=== PATIENT | male | born 1945 | race Caucasian/White ===

== ENCOUNTER → 2017-05-08 | Outpatient (CLI) | payer MEDICARE, MEDICAID ==
[~2017-05-08] MED LIST: ALBU8.5H IH; AMOX-559 PO; CEPH-13 PO; CLO75 PO; CLOP75TA14 FT; CLOP75TA43 PO; CYCL10TA29 PO; ENOX150D3 SQ; EZET10TA41 PO; HYDR-385 PO; HYDR-4225 PO; HYDR12.561 PO; IBU800 PO; LISI-362 PO; LOR5/325 PO; MECL-111 PO; MECL-205 PO; NAP500 PO; NO MEDS; NO RTN MEDS; OXYC-865 PO; OXYC10TA67 PO; PRA20 PO; PRAV40TA78 PO; PRAV80TA29 PO; WAR5 PO; WAR75 PO; WARF-18 PO
--- NOTE | 2017-05-08 12:01 | RADIOLOGY IMAGING REPORT ---
FACILITY: [facility] PATIENT NAME: Jace Farr : 1945 MR: [id number] V: [id number] EXAM DATE: ORDERING PHYSICIAN: LAUREN CASTLE TECHNOLOGIST: Location: [facility] [place] Patient: Jace Farr : 1945 Visit/Account:[id number] Date of Sevice: 05/08/2017 Examination: MRI right shoulder without contrast. Patient was unwilling to enter the magnet for imaging related to claustrophobia. No images were obtai estevan. Report Dictated By: Bryson Andino at 05/08/2017 11:53 AM Report E-Signed By: Bryson Andino at 05/08/2017 11:57 AM WSN:[id number]
== END ==
LOC: MRI 02:15
PROVIDERS: ATTEND Family Medicine
DX: Z02.9 Encounter for administrative examinations, unspecified (principal)

== ENCOUNTER 2017-05-20 02:52 | Day surgery (SDC) | payer MEDICARE, MEDICAID ==
[~2017-05-20] VITALS: Ht 175.3 cm; Wt 114.8 kg
[~2017-05-20 02:52] MED LIST changes: -WARF-18 PO; +WARF5TAB23 PO
[2017-05-20] MEDS: NORMOSOL R SOLN(*) 1000 ML BAG 1,000 ML IV PRN ×2 (10:39→13:02)
[2017-05-20] MEDS ORDERED: LIDOCAINE/SOD BICARB 8.4% SYR ID ONE (11:00)
[2017-05-20] MEDS ORDERED: MIDAZOLAM 2 MG/2 ML VIAL IVP PRN (11:00)
[2017-05-20 11:19] VITALS: BP 126/77
--- NOTE | 2017-05-20 11:30 | EKG ---
FACILITY: [facility] PATIENT NAME: LOLLY TREVIÑO : [id number] MR: [id number] V: [id number] EXAM DATE: ORDERING PHYSICIAN: LAUREN CASTLE TECHNOLOGIST: GLADYS Test Reason : PREOP-MRI Blood Pressure : / mmHG Vent. Rate : 061 BPM Atrial Rate : 061 BPM P-R Int : 156 ms QRS Dur : 088 ms QT Int : 446 ms P-R-T Axes : 057 040 054 degrees QTc Int : 448 ms Normal sinus rhythm Normal ECG When compared with ECG of 15-FEB-2017 10:16, No significant change was found Confirmed by WALKER VELASQUEZ ([id number]) on 05/20/2017 3:13:19 PM Referred By: CORRINE Confirmed By:WALKER VELASQUEZ
[2017-05-20] MEDS ORDERED: PROPOFOL EMUL(*) 10MG/ML 20 ML 0 ML ONE (11:40)
[2017-05-20] MEDS ORDERED: MIDAZOLAM 2 MG/2 ML VIAL ONE (11:40)
[2017-05-20] MEDS ORDERED: SUCCINYLCHOL CHL 200MG/10ML VL ONE (11:40)
[2017-05-20] MEDS ORDERED: FLUMAZENIL 0.1 MG/ML 5 ML VIAL ONE (11:40)
[2017-05-20] MEDS ORDERED: GLYCOPYRROLATE 0.2 MG/ML SDV ONE (11:41)
[2017-05-20] MEDS ORDERED: PHENYLEPHRINE/NS/PF 0.4MG/10ML ONE (11:41)
[2017-05-20 12:41] VITALS: BP 121/75
[2017-05-20 12:55] VITALS: BP 123/81
[2017-05-20 13:20] VITALS: BP 115/76
[2017-05-20 13:51] VITALS: BP 120/72
[2017-05-20 14:13] VITALS: BP 119/69
--- NOTE | 2017-05-20 18:19 | RADIOLOGY IMAGING REPORT ---
FACILITY: [facility] PATIENT NAME: Jace Farr : 1945 MR: [id number] V: [id number] EXAM DATE: ORDERING PHYSICIAN: LAUREN CASTLE TECHNOLOGIST: Location: [facility] [place] Patient: Jace Farr : 1945 Visit/Account:[id number] Date of Sevice: 05/20/2017 MRI right shoulder Indication: Chronic shoulder pain. Comparison: None available. Technique: Multiplanar multisequence MR images were obtained through the right shoulder. Findings: Rotator cuff: There is focal moderate to high-grade undersurface tearing of distal anterior supraspinatus. No defin ite full-thickness tear. The infraspinatus is intact with moderate tendinopathy noted. Subscapularis and teres minor also intact. Biceps tendon: Mild tendinopathy intra-articular portion biceps tendon. AC joint and acromion: There are moderate to severe AC joint degenerative changes with undersurface spurring causing mild ma ss effect upon the supraspinatus. Acromion has an unremarkable appearance. Labrum and capsular ligaments: Nondisplaced degenerative tearing of the superior labrum seen with degenerative tearing of the salvage cutter ior inferior and anterior-inferior labrum as well. Capsular ligaments are intact with no evidence of focal abnormality. Bones and cartilage: No evidence of abnormal marrow edema or focal bony lesions. No evidence of any bony erosions or jeffery ostitis. No focal chondral defect glenohumeral joint cartilage.. Effusion, bursitis: No significant glenohumeral joint effusion. Mild amount of fluid seen within the subacromial/subdeltoid bursa. IMPRESSION: 1. Mild subacromial/subacute bursitis. 2. 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 3. Extensive near circumferential degenerative labral tearing. 4. Focal moderate to high-grade undersurface tearing distal anterior supraspinatus. Report Dictated By: Willy Crooks MD at 05/20/2017 6:11 PM Report E-Signed By: Willy Crooks MD at 05/20/2017 6:14 PM WSN:[email or web address]
== END 2017-05-20 14:32 | disposition home or self-care (01) ==
LOC: OR 02:52
PROVIDERS: ATTEND Family Medicine
DX: M19.011 Primary osteoarthritis, right shoulder (principal); M75.51 Bursitis of right shoulder; S43.401A Unspecified sprain of right shoulder joint, initial encounter; M75.101 Unspecified rotator cuff tear or rupture of right shoulder, not specified as traumatic; I10 Essential (primary) hypertension
CPT/HCPCS: 73221; 93005; 99152; 99153; J2250; J0330; J2370; J2704; J3490

== ENCOUNTER → 2017-05-28 | Outpatient (CLI) | payer MEDICARE, MEDICAID ==
--- NOTE | 2017-05-28 11:51 | RADIOLOGY IMAGING REPORT ---
FACILITY: [facility] PATIENT NAME: Jace Farr : 1945 MR: [id number] V: [id number] EXAM DATE: ORDERING PHYSICIAN: CARLOS REARDON TECHNOLOGIST: Location: [facility] Patient: Jace Farr : 1945 Visit/Account:[id number] Date of Sevice: 05/28/2017 EXAMINATION: Aorta ultrasound with duplex Doppler evaluation HISTORY: Follow-up AAA size COMPARISON: CT abdomen pelvis November 04, 2016 FINDINGS: Suprarenal abdominal aorta: 2.9 x 3.4 cm AP and transverse dimensions Superior infrarenal abdominal aorta: 3.4 x 3.6 cm AP and transverse dimensions Mid infrarenal abdominal aorta: 4.2 x 4.8 cm AP and transverse dimensions Inferior infrarenal abdominal aorta: 3.3 x not well seen due to overlying bowel gas cm AP and transve rse dimensions Proximal common iliac artery diameter: Left 22 mm; right 24 mm Aorta wall: Negative. Aorta and proximal common iliac artery are patent by duplex Doppler ultrasound. IMPRESSION: Infrarenal abdominal aortic aneurysm now measures 4.2 x 4.8 cm previously measuring 4.3 x 4.5 cm. 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
== END ==
LOC: RAD 00:45
PROVIDERS: ATTEND Internal Medicine Cardiovascular Disease
DX: I71.4 Abdominal aortic aneurysm, without rupture (principal)
CPT/HCPCS: 93978

== ENCOUNTER → 2017-07-13 | Outpatient (CLI) | payer MEDICARE, MEDICAID ==
[~2017-07-13] MED LIST changes: +IPRN ENA; +OXYC-373 PO
[2017-07-13 12:00] LABS: INR 1.09
== END ==
LOC: LAB 11:19
PROVIDERS: ATTEND Anesthesiology
DX: Z01.812 Encounter for preprocedural laboratory examination (principal); M75.101 Unspecified rotator cuff tear or rupture of right shoulder, not specified as traumatic
CPT/HCPCS: 36415; 85610

== ENCOUNTER 2017-07-14 01:26 | Day surgery (SDC) | payer MEDICARE, MEDICAID ==
[~2017-07-14] VITALS: Ht 175.3 cm; Wt 113.4 kg
[2017-07-14] VITALS (7 sets, daily range): BP systolic 90–136; BP diastolic 67–84
[2017-07-14] MEDS ORDERED: PROPOFOL EMUL(*) 10MG/ML 20 ML 20 ML ONE (07:59)
[2017-07-14] MEDS ORDERED: DEXAMETHASONE SOD 4 MG/ML VIAL ONE (07:59)
[2017-07-14] MEDS ORDERED: LIDOCAINE MPF 1% 5 ML VIAL ONE (07:59)
[2017-07-14] MEDS ORDERED: ONDANSETRON 4 MG/2 ML VIAL ONE (07:59)
[2017-07-14] MEDS ORDERED: METOCLOPRAMIDE 10 MG/2 ML SDV ONE (08:00)
[2017-07-14] MEDS ORDERED: fentaNYL CITR 100 MCG/2 ML AMP ONE ×3 (09:33→12:33)
[2017-07-14] MEDS ORDERED: ROPIVACAINE 0.2% 20 ML VIAL ONE (10:09)
[2017-07-14] MEDS ORDERED: CELECOXIB 200 MG CAP PO ONE (10:15)
[2017-07-14] MEDS ORDERED: NORMOSOL R SOLN(*) 1000 ML BAG 1,000 ML IV PRN (10:15)
[2017-07-14] MEDS ORDERED: ceFAZolin(*) 2GM/D5W 50ML 50 ML IVPB ONE (10:15)
[2017-07-14] MEDS ORDERED: LIDOCAINE/SOD BICARB 8.4% SYR ID ONE (10:15)
[2017-07-14] MEDS ORDERED: MIDAZOLAM 2 MG/2 ML VIAL IVP PRN (10:15)
[2017-07-14] MEDS ORDERED: FAMOTIDINE 20 MG TAB PO ONE (10:15)
[2017-07-14] MEDS ORDERED: ePHEDrine 25 MG/5 ML DISP.SYR IVP ONE (10:38)
[2017-07-14] MEDS ORDERED: OXYC-865 PO (13:09)
--- NOTE | 2017-07-14 21:03 | OPERATIVE REPORT 1 ---
EVENT DATE: July 14, 2017 SURGEON: Gil Adrian MD ANESTHESIOLOGIST: David Angeles MD ANESTHESIA: General LMA anesthesia. CRYPTOLOGIC TECHNICIAN TECHNICAL: JOIE Thomas PREOPERATIVE DIAGNOSES 1. Right rotator cuff repeat tear as well as some impingement. 2. Labral irritation and fraying. 3. Bicipital irritation and fraying. POSTOPERATIVE DIAGNOSES 1. Right rotator cuff repeat tear as well as some impingement. 2. Labral irritation and fraying. 3. Bicipital irritation and fraying. PROCEDURES PERFORMED 1. Revision of a right rotator cuff repair. 2. Revision of a subacromial decompression. 3. Labral debridement. 4. Biceps tenotomy. FINDINGS The patient had a torn rotator cuff in the shoulder which was amenable for revision of a rotator cuff tear, as well as a lot of fraying and irritation associated with the labral-bicipital complex, but was amenable for biceps tenotomy and chondroplasty. ESTIMATED BLOOD LOSS Minimal. DRAINS None. COMPLICATIONS None. IMPLANTS USED Biomet Juggernaut 2.9 anchor times one which was double loaded. SPECIMENS None. TOURNIQUET TIME Not applicable. INDICATIONS AND HISTORY This patient is a 72-year-old male who presented to my clinic for evaluation of right shoulder pain and irritation going on for some time. He continued to have pain and irritation despite conservative management, and so therefore we ended up getting an MRI which showed a repeat tear in his rotator cuff. He had had surgery previously on this and said that it was starting to give him the same sort of trouble, and so therefore he wanted to go ahead with the rotator cuff repair today, July 14, 2017. We went over the risks and benefits associated with this. We also talked about labral fraying and irritation as well as some irritation associated with the subacromial space, and he wanted to go ahead with a complete subacromial decompression, labral debridement, and biceps tenotomy at the same time. We went over the risks and benefits, and informed consent was obtained at the last clinic visit. He understood that the revision rate of re-tear is higher. DESCRIPTION OF PROCEDURE As the patient was brought in the operating room, he and the procedure were both verified. He was placed supine on the operating table and induced and intubated by Anesthesia. He was then turned in the lateral decubitus position with the right arm toward the ceiling, and then the right arm was prepped and draped in the usual fashion. A timeout was observed verifying the correct patient and procedure. The standard incisions were made over the anterior and posterior aspects of the shoulder. The scope was inserted posteriorly and into the intra-articular portion of the shoulder. I then put a Alcazar cannula in the front part of the shoulder and then was able to debride the cartilage and also the labrum using the suction shaver throughout this area. I was then able to insert the electrocautery and then shrink down some the frayed and irritated labrum as well as release the biceps. Once I released the biceps, it fell into the anterior aspect and had no signs of problems or issues associated with that. I then debrided the undersurface of the rotator cuff and over the footprint area where it had torn off in order to make it more amenable for repair. Once in the subacromial space, I did a complete subacromial bursectomy and extensive debridement through this area, as well as a subacromial decompression , taking out the anterior bone spur. I was then able to identify the rotator cuff tear after doing a complete bursectomy and then identify where the rotator cuff was torn. I then debrided the rotator cuff through this area until I got back to a nice, stable base and made sure to get under the rotator cuff in order to repair it back to the footprint. I then decorticated the footprint without any difficulty and placed a 2.9 Biomet Juggernaut anchor in this area. I was then able to pass the sutures in a horizontal mattress-type fashion. All four limbs were passed and crossed the rotator cuff tear itself, and then I was able to pull that back down and tie it back in without any major issues. Once I did this, I was then able to pull the rotator cuff all the way back and then put it through internal/external rotation movement. There were no signs of gapping or problems associated with the rotator cuff, and so therefore I was then able to put it through an abduction/adduction movement. There was no undue tension, so therefore I removed all instrumentation, drained the fluid out of the shoulder, and then closed the portal sites using a 4-0 Monocryl in an interrupted subcuticular fashion. I anesthetized him with ropivacaine, dressed him with Steri-Strips, gauze 4 x 4's, and a soft dressing. The patient was put in an abduction sling, awakened, extubated, and transferred to PACU in stable condition. PARVEEN
== END 2017-07-14 13:45 | disposition home or self-care (01) ==
LOC: OR 01:26
PROVIDERS: ATTEND Orthopaedic Surgery
DX: M75.101 Unspecified rotator cuff tear or rupture of right shoulder, not specified as traumatic (principal); M75.41 Impingement syndrome of right shoulder
CPT/HCPCS: 29826; 29827; A4565; A9270; C1713; J1100; J2001; J2250; J2405; J2704; J2765; J2795; J3010; J0690

== ENCOUNTER 2017-07-15 19:20 | Emergency (ER) | payer MEDICAID, MEDICARE ==
--- NOTE | 2017-07-15 19:39 | ER Report ---
History and Physical Time Seen By MD: 19:39 Hx. of Stated Complaint: PT HAD ROTATOR CUFF REPAIR YESTERDAY, HAD LOW BP READING AT HOME OF 94/51, SLIGHTLY DIZZY AND "LISTLESS" HPI/ROS CHIEF COMPLAINT: dizziness, low blood pressure HISTORY OF PRESENT ILLNESS: This is a 72 year old male. He had rotator cuff surgery yesterday. Today he had two readings from his blood pressure cuff that were low. He has been feeling dizzy. He has been taking oxycodone/APAP 5/325 for pain. He has been drinking fluids and ate dinner tonight. Having some constipation from the pain medicine. He has no shortness of breath and no chest pain or palpitations. He is urinating with out problems. He is still taking his regular Lisinopril 10mg once a day. He has recently stopped his Plavix. He is on a Lovenox bridge until he can restart his Warfarin. He has no fevers or chills. Other than postoperative shoulder pain, he has no other pain. He is having some increased swelling in his legs bilaterally. He is worried about the possibility of blood clots after his surgery. He has been sleeping in the recliner, unable to keep his legs elevated because of pressure on the shoulder. Allergies: Coded Allergies: Influenza Virus Vaccines (Verified Allergy, Mild, NAUSEA, VOMITING, ) Tetanus Vaccines and Toxoid (Verified Allergy, Mild, SWELLING IN ARM FROM VACCINE, 02/15/17) tetanus toxoid, adsorbed (Verified Allergy, Mild, 02/15/17) Home Meds Active Scripts Hydroxyzine Hcl (HYDROXYZINE HCL) 25 Mg Tablet, 25 MG PO Q6H Y for prn, #10 TAB Prov:JORGE ANDUJAR PA-C 02/15/17 Albuterol Sulfate 90 Mcg/Act (PROAIR HFA 90 MCG/ACT) 8.5 Gm Hfa.aer.ad, 1-2 PUFF IH Q4-6H, #1 INHALER Prov:JORGE ANDUJAR PA-C 02/15/17 Reported Medications Oxycodone Hcl/Acetaminophen (PERCOCET 5-325 MG TABLET) 1 Each Tablet, 1-2 TAB PO Q4-6H Y for PAIN, #60 TAB 07/14/17 Ipratropium [place] 0.03% Ns (IPRATROPIUM BROMIDE 0.03% NS) 21 Mcg [place], 21 MCG JIM BID, SPRAY 07/07/17 Oxycodone Hcl/Acetaminophen (OXYCODONE-ACETAMINOPHEN 5-325) 1 Each Tablet, 1 EACH PO Q4-6H Y for PAIN, TAB 07/07/17 Ezetimibe (ZETIA) 10 Mg Tablet, 10 MG PO QPM, TAB 05/16/15 Pravastatin Sodium (PRAVASTATIN SODIUM) 80 Mg Tablet, 80 MG PO QDAY 05/16/15 Lisinopril (Lisinopril) 10 Mg Tablet, 10 MG PO QAM 06/27/12 Discontinued Reported Medications Warfarin Sod (Coumadin (Or Equiv)) 7.5 Mg Tab, 7.5 MG PO QWK 12/19/11 Clopidogrel Bisulfate (Plavix) 75 Mg Tab, 75 MG PO QAM, #30 0 Refills 11/11/11 Warfarin Sod (Coumadin (Or Equiv)) 5 Mg Tab, 5 MG PO HS, 0 Refills SIX DAYS A WEEK 10/24/11 Reviewed Nurses Notes: Yes Hx Smoking: Yes (2011 QUIT) Smoking Status: Former Smoker Exposure to Second Hand Smoke?: No Hx Substance Use Disorder: No Hx Alcohol Use: No Constitutional Vital Sign - Last 24 Hours 07/15/17 07/15/17 07/15/17 07/15/17 19:20 19:27 19:28 19:35 Temp 97.6 Pulse ??? 80 Resp 18 B/P (MAP) 123/70 (87) 123/70 Pulse Ox 88 88 O2 Delivery Room Air 07/15/17 07/15/17 07/15/17 07/15/17 19:37 19:45 19:50 20:05 Pulse 78 ??? B/P (MAP) 122/70 (87) Pulse Ox 93 O2 Flow Rate 1.0 07/15/17 07/15/17 07/15/17 07/15/17 20:13 20:15 20:16 20:17 Pulse 71 73 Resp 22 20 B/P (MAP) 142/79 (100) 142/79 (100) 133/67 (89) 133/67 (89) Pulse Ox 93 92 O2 Delivery Nasal Cannula Nasal Cannula 07/15/17 07/15/17 07/15/17 07/15/17 20:18 20:18 20:20 20:35 Pulse 77 72 69 Resp 18 B/P (MAP) 138/69 (92) 138/69 (92) Pulse Ox 94 93 92 O2 Delivery Nasal Cannula 07/15/17 07/15/17 07/15/17 07/15/17 20:50 21:05 21:10 21:25 Pulse 68 71 70 77 Pulse Ox 91 91 94 92 07/15/17 07/15/17 07/15/17 07/15/17 21:40 21:55 22:10 22:25 Pulse ??? 66 71 65 Pulse Ox 94 94 91 93 07/15/17 07/15/17 22:40 22:55 Pulse ? Physical Exam General Appearance: The patient is alert. No acute distress. Eyes: Pupils are equal, round. No pallor, injection or icterus. ENT: Mucous membranes are moist. Normal oral mucosa. Posterior oropharynx is normal. Neck: Supple and non tender. Respiratory: Lungs are clear to auscultation. Cardiovascular: Regular rate and rhythm. No murmurs, gallops or rubs. Normal capillary refill. 1+ edema lower extremities bilaterally. Gastrointestinal: Abdomen is soft and non tender. Nondistended. Normal active bowel sounds. Neurological: Alert and oriented x3. No focal neurologic deficits Skin: Warm and dry. DIFFERENTIAL DIAGNOSIS: After history and physical exam, differential diagnosis was considered for patient with concerns about dizziness, low blood pressure, and leg swelling post-operatively. Medical Decision Making Data Points Result Diagram: 07/15/17194407/15/171944 Laboratory Hematology Test 07/15/17 00:00 07/15/17 19:45 07/15/17 20:15 B-Type Natriuretic Peptide 46 pg/ml (0-100) Red Blood Count 4.42 M/uL (4.00-5.60) Mean Corpuscular Volume 86.8 fL (80.0-96.0) Mean Corpuscular Hemoglobin 30.9 pg (26.0-33.0) Mean Corpuscular Hemoglobin Concent 35.6 g/dL (32.0-36.0) Red Cell Distribution Width 13.4 % (11.5-14.5) Mean Platelet Volume 9.0 fL (7.2-11.1) Neutrophils (%) (Auto) 68.1 % (39.4-72.5) Lymphocytes (%) (Auto) 19.9 % (17.6-49.6) Monocytes (%) (Auto) 11.3 % (4.1-12.4) Eosinophils (%) (Auto) 0.3 % (0.4-6.7) Basophils (%) (Auto) 0.4 % (0.3-1.4) Nucleated RBC Relative Count (auto) 0.0 /100WBC Neutrophils # (Auto) 6.8 K/uL (2.0-7.4) Lymphocytes # (Auto) 2.0 K/uL (1.3-3.6) Monocytes # (Auto) 1.1 K/uL (0.3-1.0) Eosinophils # (Auto) 0.0 K/uL (0.0-0.5) Basophils # (Auto) 0.0 K/uL (0.0-0.1) Nucleated RBC Absolute Count (auto) 0.00 K/uL Sodium Level 139 mmol/L (137-145) Potassium Level 3.6 mmol/L (3.5-5.0) Chloride Level 101 mmol/L (98-107) Carbon Dioxide Level 24 mmol/L (22-30) Blood Urea Nitrogen 26 mg/dl (9-21) Creatinine 1.50 mg/dl (0.66-1.25) Glomerular Filtration Rate Calc 46.3 Random Glucose 173 mg/dl (75-110) Calcium Level 9.6 mg/dl (8.4-10.2) Total Bilirubin 0.6 mg/dl (0.2-1.3) Aspartate Amino Transf (AST/SGOT) 34 U/L (0-35) Alanine Aminotransferase (ALT/SGPT) 71 U/L (0-56) Alkaline Phosphatase < 20 U/L (0-126) Troponin I < 0.012 ng/ml Total Protein 6.7 gm/dl (6.3-8.2) Albumin 4.1 g/dl (3.5-5.0) Urine Color Yellow Urine Clarity Clear Urine pH 6.0 pH (4.8-9.5) Urine Specific [place] 1.009 Urine Protein Negative mg/dL (NEGATIVE) Urine Glucose (UA) Negative mg/dL (NEGATIVE) Urine Ketones Negative mg/dL (NEGATIVE) Urine Blood Negative (NEGATIVE) Urine Nitrite Negative (NEGATIVE) Urine Bilirubin Negative (NEGATIVE) Urine Urobilinogen 2.0 mg/dL (0.2-1.9) Urine Leukocyte Esterase Negative (NEGATIVE) Urine RBC None /HPF (0-2/HPF) Urine WBC <1 /HPF (0-5/HPF) Urine Squamous Epithelial Cells None /LPF (</=FEW) Urine Bacteria Negative /HPF (NONE-FEW) Urine Mucus None /HPF (NONE-FEW) Chemistry Test 07/15/17 00:00 07/15/17 19:45 07/15/17 20:15 B-Type Natriuretic Peptide 46 pg/ml (0-100) White Blood Count 9.9 k/uL (4.5-11.0) Red Blood Count 4.42 M/uL (4.00-5.60) Hemoglobin 13.7 g/dL (14.0-18.0) Hematocrit 38.3 % (42.0-52.0) Mean Corpuscular Volume 86.8 fL (80.0-96.0) Mean Corpuscular Hemoglobin 30.9 pg (26.0-33.0) Mean Corpuscular Hemoglobin Concent 35.6 g/dL (32.0-36.0) Red Cell Distribution Width 13.4 % (11.5-14.5) Platelet Count 138 K/uL (150-450) Mean Platelet Volume 9.0 fL (7.2-11.1) Neutrophils (%) (Auto) 68.1 % (39.4-72.5) Lymphocytes (%) (Auto) 19.9 % (17.6-49.6) Monocytes (%) (Auto) 11.3 % (4.1-12.4) Eosinophils (%) (Auto) 0.3 % (0.4-6.7) Basophils (%) (Auto) 0.4 % (0.3-1.4) Nucleated RBC Relative Count (auto) 0.0 /100WBC Neutrophils # (Auto) 6.8 K/uL (2.0-7.4) Lymphocytes # (Auto) 2.0 K/uL (1.3-3.6) Monocytes # (Auto) 1.1 K/uL (0.3-1.0) Eosinophils # (Auto) 0.0 K/uL (0.0-0.5) Basophils # (Auto) 0.0 K/uL (0.0-0.1) Nucleated RBC Absolute Count (auto) 0.00 K/uL Glomerular Filtration Rate Calc 46.3 Calcium Level 9.6 mg/dl (8.4-10.2) Total Bilirubin 0.6 mg/dl (0.2-1.3) Aspartate Amino Transf (AST/SGOT) 34 U/L (0-35) Alanine Aminotransferase (ALT/SGPT) 71 U/L (0-56) Alkaline Phosphatase < 20 U/L (0-126) Troponin I < 0.012 ng/ml Total Protein 6.7 gm/dl (6.3-8.2) Albumin 4.1 g/dl (3.5-5.0) Urine Color Yellow Urine Clarity Clear Urine pH 6.0 pH (4.8-9.5) Urine Specific [place] 1.009 Urine Protein Negative mg/dL (NEGATIVE) Urine Glucose (UA) Negative mg/dL (NEGATIVE) Urine Ketones Negative mg/dL (NEGATIVE) Urine Blood Negative (NEGATIVE) Urine Nitrite Negative (NEGATIVE) Urine Bilirubin Negative (NEGATIVE) Urine Urobilinogen 2.0 mg/dL (0.2-1.9) Urine Leukocyte Esterase Negative (NEGATIVE) Urine RBC None /HPF (0-2/HPF) Urine WBC <1 /HPF (0-5/HPF) Urine Squamous Epithelial Cells None /LPF (</=FEW) Urine Bacteria Negative /HPF (NONE-FEW) Urine Mucus None /HPF (NONE-FEW) Urinalysis Test 07/15/17 20:15 Urine Color Yellow Urine Clarity Clear Urine pH 6.0 pH (4.8-9.5) Urine Specific [place] 1.009 Urine Protein Negative mg/dL (NEGATIVE) Urine Glucose (UA) Negative mg/dL (NEGATIVE) Urine Ketones Negative mg/dL (NEGATIVE) Urine Blood Negative (NEGATIVE) Urine Nitrite Negative (NEGATIVE) Urine Bilirubin Negative (NEGATIVE) Urine Urobilinogen 2.0 mg/dL (0.2-1.9) Urine Leukocyte Esterase Negative (NEGATIVE) Urine RBC None /HPF (0-2/HPF) Urine WBC <1 /HPF (0-5/HPF) Urine Squamous Epithelial Cells None /LPF (</=FEW) Urine Bacteria Negative /HPF (NONE-FEW) Urine Mucus None /HPF (NONE-FEW) EKG/Imaging EKG Interpretation 12 lead EKG: Rhythm: normal sinus rhythm, rate 79 [place]: normal QRS: normal ST segments: normal Imaging Technique: CHEST SINGLE AP HISTORY: dizzy, low blood pressure Comparison studies: Chest radiographs February 15, 2017 FINDINGS: Persistent left lower lung linear opacities are noted consistent with scarring and/or atelectasis. Scattered interstitial lung markings are present. No lobar airspace consolidation. The cardiomediastinal silhouette is unchanged. IMPRESSION: 1. No acute cardiopulmonary process. 2. Chronic lung changes. Report Dictated By: Tyler Babin DO at 07/15/2017 8:10 PM ED Course/Re-evaluation Clinical Indication for ER IV: Hydration, IV Access ED Course The patient appeared to be a little volume depleted, but with edema in the legs. EKG and imaging negative. No evidence of DVT. Patients had 500cc NS IV and had normal blood pressures. Negative orthostatics. Discussed mechanical ways to get the swelling from legs. Will try to keep legs elevated and use STEVE wraps for compression. He will follow-up with Dr. Castle later this week for re-evaluation. May need to have Lasix to help with edema. Decision to Disposition Date: Jul 15, 2017 Decision to Disposition Time: 23:04 Depart Departure Latest Vital Signs Vital Signs Date Time Temp Pulse Resp B/P (MAP) Pulse Ox O2 Delivery O2 Flow Rate FiO2 07/15/17 22:55 ??? 07/15/17 22:25 93 07/15/17 20:18 138/69 (92) 07/15/17 20:18 18 Nasal Cannula 07/15/17 19:45 1.0 07/15/17 19:28 97.6 Impression: Primary Impression: Low blood pressure reading Additional Impression: Edema Condition: Improved Disposition: HOME OR SELF-CARE Referrals: LAUREN CASTLE DO (PCP) Patient Instructions: Leg Edema (ED) Additional Instructions: For your low blood pressure, please cut you Lisinopril 10mg tablets in half and take 1/2 tablet once a day. Try to keep your legs elevated while at rest. Use the STEVE wraps to help apply some compression to help with your edema. Please call Dr. Castle's office tomorrow to schedule a follow-up in the next couple of days for re-evaluation of both blood pressure and the edema in your legs. Problem Qualifiers Additional Impression: Edema Edema type: unspecified Qualified Codes: R60.9 - Edema, unspecified CHAYO VENTURA MD Jul 15, 2017 19:39
[2017-07-15 20:15] LABS: PLATELET COUNT, AUTOMATED 138 K/uL (150-450)
--- NOTE | 2017-07-15 20:16 | RADIOLOGY IMAGING REPORT ---
[place] [facility] [place] NAME[place] Jace Farr : 1945 MR: [id number] V: [id number] EXAM DATE: ORDERING PHYSICIAN: CHAYO VENTURA TECHNOLOGIST: [facility] Patient: Jace Farr : 1945 Visit/Account:[id number] Date of Sevice: 07/15/2017 Technique: CHEST SINGLE AP HISTORY: dizzy, low blood pressure Comparison studies: Chest radiographs February 15, 2017 FINDINGS: Persistent left lower lung linear opacities are noted consistent with scarring and/or atele ctasis. Scattered interstitial lung markings are present. No lobar airspace consolidation. The cardio mediastinal silhouette is unchanged. IMPRESSION: 1. No acute cardiopulmonary process. 2. Chronic lung changes. Report Dictated By: Tyler Babin DO at 07/15/2017 8:10 PM Report E-Signed By: Tyler Babin DO at 07/15/2017 8:13 PM WSN:[id number]
[2017-07-15 20:18] VITALS: BP 138/69
--- NOTE | 2017-07-15 20:24 | EKG ---
FACILITY: [facility] [place] PATIENT NAME: LOLLY TREVIÑO : [id number] MR: [id number] V: [id number] EXAM DATE: ORDERING PHYSICIAN: CHAYO VENTURA TECHNOLOGIST: OLIVIA Valdivia Reason : CARDIAC Blood Pressure : / mmHG Vent. Rate : 079 BPM Atrial Rate : 079 BPM P-R Int : 158 ms QRS Dur : 090 ms QT Int : 378 ms P-R-T Axes : 071 059 060 degrees QTc Int : 433 ms Normal sinus rhythm Normal ECG When compared with ECG of 20-MAY-2017 11:22, No significant change was found Confirmed by ELLA MARTEL ([id number]) on 07/16/2017 12:37:37 AM Referred By: Confirmed By:ELLA MARTEL
[2017-07-15] MEDS ORDERED: NS(*) 0.9% 1000 ML BAG 1,000 ML IV ONE (20:40)
--- NOTE | 2017-07-15 22:43 | RADIOLOGY IMAGING REPORT ---
FACILITY: [facility] [place] PATIENT NAME: Jace Farr : 1945 MR: [id number] V: [id number] EXAM DATE: ORDERING PHYSICIAN: CHAYO VENTURA TECHNOLOGIST: Location: [facility] [place] Patient: Jace Farr : 1945 Visit/Account:[id number] Date of Sevice: 07/15/2017 EXAMINATION: Bilateral Lower Extremity Venous Ultrasound HISTORY: Leg swelling. Recent shoulder surgery. TECHNIQUE: Ultrasound evaluation of the bilateral lower extremity veins was performed with color and spectral Doppler and compression views. COMPARISON: None. FINDINGS: The bilateral common femoral, femoral, proximal deep femoral, popliteal, and segmentally visualized d eep calf veins are patent and compressible, without evidence of intraluminal thrombus. The upper gre ater saphenous vein is patent bilaterally. IMPRESSION: No sonographic evidence of DVT in either leg. Report Dictated By: Nicola Harmon MD at 07/15/2017 10:37 PM Report E-Signed By: Nicola Harmon MD at 07/15/2017 10:39 PM WSN:[id number]
[2017-07-15] MEDS ORDERED: DOCUSATE SODIUM 100 MG CAP PO ONE (22:45)
== END 2017-07-15 23:19 | disposition home or self-care (01) ==
LOC: ER 19:50
DX: R03.1 Nonspecific low blood-pressure reading (principal); R60.9 Edema, unspecified; Z98.890 Other specified postprocedural states
CPT/HCPCS: 71045; 81001; 83880; 84484; 85025; 93005; 93970; 96360; 96361; 99284; A9270; J7030; 82040; 82247; 82310; 82374; 82435; 82565; 82947; 84075; 84132; 84155; 84295; 84450; 84460; 84520

== ENCOUNTER → 2017-11-23 | Outpatient (CLI) | payer MEDICARE, MEDICAID ==
--- NOTE | 2017-11-23 14:22 | RADIOLOGY IMAGING REPORT ---
FACILITY: [facility] PATIENT NAME: Jace Farr : 1945 MR: [id number] V: [id number] EXAM DATE: ORDERING PHYSICIAN: CARLOS REARDON TECHNOLOGIST: Location: [facility] Patient: Jace Farr : 1945 Visit/Account:[id number] Date of Sevice: 11/23/2017 AORTA HISTORY: History of aneurysm, previously maximum dimension was 4.2 x 4.8 cm within the mid infrarena l COMPARISON: 05/28/2017 FINDINGS: Infrarenal abdominal aorta: 4.8 x 4.4 cm greatest AP and transverse dimensions. Aorta wall/mural thrombus: There is a moderate amount of thrombus seen within the aneurysm. Proximal common iliac artery diameters: Left 21 mm; Right 22 mm. Aorta and proximal common iliac arteries are patent by duplex Doppler ultrasound. IMPRESSION: Essentially stable examination of the infrarenal abdominal aorta, maximum dimension remains 4.8 cm wi thin the mid infrarenal aorta Report Dictated By: Denis Barcenas at 11/23/2017 2:02 PM Report E-Signed By: Denis Barcenas at 11/23/2017 2:19 PM WSN:[id number]
== END ==
LOC: US 02:35
PROVIDERS: ATTEND Internal Medicine Cardiovascular Disease
DX: I71.4 Abdominal aortic aneurysm, without rupture (principal)
CPT/HCPCS: 93979

== ENCOUNTER → 2018-01-21 | Outpatient (REF) | payer MEDICARE, MEDICAID | LOC: ZZSENDIN 13:10 | PROVIDERS: ATTEND Family Medicine | DX: L82.1 Other seborrheic keratosis (principal) | CPT/HCPCS: 88305 ==

== ENCOUNTER 2018-04-29 02:25 | Day surgery (SDC) | payer MEDICARE, MEDICAID ==
[~2018-04-29] VITALS: Ht 175.3 cm; Wt 111.6 kg
[2018-04-29] VITALS (8 sets, daily range): BP systolic 86–124; BP diastolic 56–87
[~2018-04-29 02:25] MED LIST changes: +ACET-1966 PO; +MELA1TAB9 PO
[2018-04-29] MEDS ORDERED: PROPOFOL EMUL(*) 10MG/ML 20 ML 20 ML ONE ×5 (07:18→14:37)
[2018-04-29 11:16] LABS: INR 1.1
[2018-04-29] MEDS ORDERED: NORMOSOL R SOLN(*) 1000 ML BAG 1,000 ML IV PRN (12:50)
[2018-04-29] MEDS ORDERED: LIDOCAINE/SOD BICARB 8.4% SYR ID ONE (12:50)
--- NOTE | 2018-04-29 16:37 | NUR ---
1455: pt arrives, he is snoring but his airway is clear. lungs sound tight in upper lobes. hypoactive bowl sounds. 1100 of fluids received in the or. 1507: dr polo at bedside concerned about bp, bp taken again wnl 1515: pt is alert and oriented x3 1517: water given to pt upon request 1539: pt moved to 1l nc, maintaining sats, discharge instructions with pt and frined they state understanding 1546: pt moved to ra 1559: entering the room pt is sitting on the side of the bed, orthostatic bps started 1605: pt is dressing 1610: pt walked to car by blanca swain and girlfriend.
== END 2018-04-29 16:26 | disposition home or self-care (01) ==
LOC: OR 02:25
PROVIDERS: ATTEND Family Medicine
DX: Z12.11 Encounter for screening for malignant neoplasm of colon (principal); D12.0 Benign neoplasm of cecum; K63.5 Polyp of colon; I10 Essential (primary) hypertension; E78.5 Hyperlipidemia, unspecified; E66.9 Obesity, unspecified; Z68.36 Body mass index [BMI] 36.0-36.9, adult; J45.909 Unspecified asthma, uncomplicated; G47.33 Obstructive sleep apnea (adult) (pediatric); I71.4 Abdominal aortic aneurysm, without rupture
CPT/HCPCS: 00811; 36415; 45380; 85610; 88305; J2704

== ENCOUNTER → 2018-06-18 | Outpatient (CLI) | payer MEDICARE, MEDICAID ==
--- NOTE | 2018-06-18 09:27 | RADIOLOGY IMAGING REPORT ---
FACILITY: [facility] PATIENT NAME: Jace Farr : 1945 MR: [id number] V: [id number] EXAM DATE: ORDERING PHYSICIAN: CARLOS REARDON TECHNOLOGIST: Location: [facility] [place] Patient: Jace Farr : 1945 Visit/Account:[id number] Date of Sevice: 06/18/2018 Abdominal aortic ultrasound. HISTORY: Abdominal aortic aneurysm. COMPARISON: 11/23/2017. A color-flow Doppler Duplex Ultrasound examination with spectral analysis was performed on the abdomi nal aorta. Suprarenal Aorta: AP 2.5 cm X Transverse 2.6 cm. Superior Infrarenal Aorta: AP 2.7 cm X Transverse 2.7 cm. Mid Infrarenal Aorta: AP 4.2 cm X Transverse 4.6 cm. Inferior Infrarenal Aorta: AP 3.8 cm X Transverse 3.9 cm. Right Common Iliac Artery: 2.5 cm. Left Common Iliac Artery: 1.9 cm. The kidneys, renal arteries, and inferior vena cava are partially obscured. Mild plaque is present i n the infrarenal abdominal aorta. Aortic and iliac measurements are essentially unchanged compared t o previous when differences in measurement technique are taken into account. Multiple simple cysts a re scattered in both kidneys. IMPRESSION: 4.6 cm infrarenal abdominal aortic aneurysm, essentially unchanged. Report Dictated By: Martin Interiano MD at 06/18/2018 9:18 AM Report E-Signed By: Martin Interiano MD at 06/18/2018 9:22 AM WSN:[id number]
== END ==
LOC: US 06-15 01:26
PROVIDERS: ATTEND Internal Medicine Cardiovascular Disease
DX: I71.4 Abdominal aortic aneurysm, without rupture (principal)
CPT/HCPCS: 93979

== ENCOUNTER → 2018-07-08 | Outpatient (CLI) | payer MEDICARE, MEDICAID ==
--- NOTE | 2018-07-08 17:08 | RADIOLOGY IMAGING REPORT ---
FACILITY: [facility] [place] PATIENT NAME: Jace Farr : 1945 MR: [id number] V: [id number] EXAM DATE: ORDERING PHYSICIAN: JODI MOROCHO TECHNOLOGIST: Location: [facility] [place] Patient: Jace Farr : 1945 Visit/Account:[id number] Date of Sevice: 07/08/2018 Carotid artery Doppler duplex ultrasound scan. HISTORY: TIA. COMPARISON: None. A color flow Doppler duplex ultrasound scan with spectral analysis was performed on the carotid and v ertebral arteries bilaterally. Measurement of carotid stenosis is based on velocity parameters that correlate the residual internal carotid diameter with [place] Symptomatic Carotid Endarterecto my Trial (NASCET)- based stenosis levels. Right carotid peak systolic velocities are as follows: Superior right ICA - 78 cm/sec. Mid right ICA - 77 cm/sec. Proximal right ICA - 60 cm/sec. Right carotid bulb - 103 cm/sec. Superior right CCA - 78 cm/sec. Mid right CCA- 114 cm/sec. Inferior right CCA- 87 cm/sec. Proximal right ECA- 138 cm/sec. Mid right vertebral- 38 cm/sec. Right ICA/CCA ratio- 1.0 ( normal < 1.5 ). Antegrade right vertebral artery flow- YES. Left carotid peak systolic velocities are as follows: Superior left ICA - 75 cm/sec. Mid left ICA- 80 cm/sec. Proximal left ICA- 95 cm/sec. Left carotid bulb- 134 cm/sec. Superior left CCA- 89 cm/sec. Mid left CCA- 98 cm/sec. Inferior left CCA- 99 cm/sec. Proximal left ECA- 158 cm/sec. Mid left vertebral- 20 cm/sec. Left ICA/CCA ratio- 0.9 ( normal < 1.5). Antegrade left vertebral artery flow- YES. Calcified plaques are present in the carotid bulbs, proximal internal carotid arteries, external ventura tid arteries, and common carotid arteries bilaterally. Ulcerated plaques are present in the right mi d common carotid artery and the left proximal common carotid artery. 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 30-50% stenoses of the right carotid bulb and proximal right internal carotid artery. 50-70% stenoses of the proximal external carotid arteries bilaterally. Ulcerated plaques in the common carotid arteries bilaterally. Report Dictated By: Martin Interiano MD at 07/08/2018 4:59 PM Report E-Signed By: Martin Interiano MD at 07/08/2018 5:04 PM WSN:[email or web address]
== END ==
LOC: US 00:45
PROVIDERS: ATTEND Surgery Vascular Surgery
DX: I25.84 Coronary atherosclerosis due to calcified coronary lesion (principal); I65.29 Occlusion and stenosis of unspecified carotid artery; I71.4 Abdominal aortic aneurysm, without rupture; G45.9 Transient cerebral ischemic attack, unspecified
CPT/HCPCS: 93880

== ENCOUNTER 2018-07-31 17:53 | Emergency (ER) | payer MEDICARE, MEDICAID ==
[2018-07-31 18:00] VITALS: BP 126/69
--- NOTE | 2018-07-31 18:01 | ER Report ---
History and Physical Time Seen By MD: 18:01 HPI/ROS CHIEF COMPLAINT: Left foot pain HISTORY OF PRESENT ILLNESS: 73-year-old male presents ambulatory to the ER with left foot pain since yesterday. He stepped on a uneven granite rock and felt a popping sensation in his foot. She's been having 8/10 throbbing pain throughout the night. He's been taking some leftover Lortab from his aortic aneurysm surgery. Patient apparently had a stent placed. He's back on his warfarin now. Patient notes continued pain with ambulation. He notes throbbing pain which prevented him from sleeping last night despite taking a half of a 5/325 Lortab. She notes pain along the outer aspect of the foot. He notes no bruising or swelling. REVIEW OF SYSTEMS: Respiratory: No cough, no dyspnea. Cardiovascular: No chest pain, no palpitations. Gastrointestinal: No vomiting, no abdominal pain. Musculoskeletal: As above Allergies: Coded Allergies: Influenza Virus Vaccines (Verified Allergy, Mild, NAUSEA, VOMITING, 02/15/17) Tetanus Vaccines and Toxoid (Verified Allergy, Mild, SWELLING IN ARM FROM VACCINE, 02/15/17) tetanus toxoid, adsorbed (Verified Allergy, Mild, 02/15/17) Home Meds Active Scripts Hydrocodone Bit/Acetaminophen (HYDROCODON-ACETAMINOPHEN 5-325) 1 Each Tablet, 1 EACH PO Q4-6H PRN for PAIN, #10 TAKE ONE TABLET BY MOUTH EVERY 4-6 HOURS NEEDED FOR PAIN Prov:RUIZ REN DO 07/31/18 Hydroxyzine Hcl (HYDROXYZINE HCL) 25 Mg Tablet, 25 MG PO Q6H PRN for prn, #10 TAB Prov:JORGE ANDUJAR PA-C 02/15/17 Albuterol Sulfate 90 Mcg/Act (PROAIR HFA 90 MCG/ACT) 8.5 Gm Hfa.aer.ad, 1-2 PUFF IH Q4-6H, #1 INHALER Prov:JORGE ANDUJAR PA-C 02/15/17 Reported Medications Hydrocodone Bit/Acetaminophen (HYDROCODON-ACETAMINOPHEN 5-325) 1 Each Tablet, 1 EACH PO Q4-6H, TAB 07/31/18 Acetaminophen (TYLENOL) 325 Mg Tablet, 1-2 TAB PO PRN PRN for PAIN, TAB 04/14/18 Melatonin/Pyridoxine HCl (B6) (Melatonin 3 mg Tablet) 1 Each Tablet, 1 TAB PO QHS 04/14/18 Warfarin Sodium (WARFARIN SODIUM) 5 Mg Tablet, 5 MG PO DIRECTED, TAB TAKE 5MG ON , , THURSDAY, Thursday04/14/18 Ezetimibe (ZETIA) 10 Mg Tablet, 10 MG PO QPM, TAB 05/16/15 Pravastatin Sodium (PRAVASTATIN SODIUM) 80 Mg Tablet, 80 MG PO QDAY 05/16/15 Lisinopril (Lisinopril) 10 Mg Tablet, 10 MG PO QAM 06/27/12 Discontinued Reported Medications Warfarin Sodium (WARFARIN SODIUM) 5 Mg Tablet, 7.5 MG PO DIRECTED, TAB M,W,F 04/14/18 Reviewed Nurses Notes: Yes Old Medical Records Reviewed: Yes Hx Smoking: No Smoking Status: Former Smoker Exposure to Second Hand Smoke?: No Hx Substance Use Disorder: No Hx Alcohol Use: No Constitutional Vital Sign - Last 24 Hours 07/31/18 18:00 Pulse 68 Resp 24 B/P (MAP) 126/69 Pulse Ox 93 O2 Delivery Room Air Physical Exam General Appearance: The patient is alert, has no immediate need for airway protection and no current signs of toxicity. Mild distress Eyes: Pupils equal and round no injection. Respiratory: Chest is non tender, lungs are clear to auscultation. Cardiac: regular rate and rhythm Gastrointestinal: Abdomen is soft and non tender, no masses, bowel sounds normal. Musculoskeletal: Neck: Neck is supple and non tender. Extremities have full range of motion and are non tender. Examination of the left foot reveals tenderness of the base of 5th metatarsal. All digits are neurovascularly intact. There is no tenderness on palpation or movement of the ankle. Achilles tendon is unremarkable on palpation Skin: No rashes or lesions. DIFFERENTIAL DIAGNOSIS: After history and physical exam differential diagnosis was considered for sprain, strain, fracture, this occasion, contusion Medical Decision Making EKG/Imaging Imaging X-ray: Left foot, 3 views was obtained. I viewed the images myself on the PACS system. My interpretation of the images is: There is a nondisplaced base of the 5th metatarsal fracture. The radiologist interpretation had no clinically significant variation from this interpretation. ED Course/Re-evaluation ED Course Patient was admitted to an examination room. H&P was done. The differential diagnoses was considered. Patient has leftover Lortab that he's been taking for pain. He is on warfarin unable to take NSAIDs. Diagnostic x-rays were ordered. Patient's x-ray shows a nondisplaced fracture of the base of the 5th metatarsal extending toward the joint surface. Patient's placed in a walking boot to protect his fracture and stabilizes lower leg. Patient advised to keep it elevated and apply ice packs. He has 9 Lortab 5/325 leftover. I wrote a prescription for 10 more. He is given the number for Dr. Guzmán orthopedics for follow-up if it does not improve. Decision to Disposition Date: July 31, 2018 Decision to Disposition Time: 18:34 Depart Departure Latest Vital Signs Vital Signs Date Time Temp Pulse Resp B/P (MAP) Pulse Ox O2 Delivery O2 Flow Rate FiO2 07/31/18 18:00 68 24 126/69 93 Room Air Impression: Primary Impression: Closed nondisplaced fracture of fifth left metatarsal bone Condition: Improved Disposition: HOME OR SELF-CARE Referrals: LAUREN CASTLE DO (PCP) EPI GUZMÁN MD New Scripts Hydrocodone Bit/Acetaminophen (HYDROCODON-ACETAMINOPHEN 5-325) 1 Each Tablet 1 EACH PO Q4-6H PRN for PAIN, #10 TAKE ONE TABLET BY MOUTH EVERY 4-6 HOURS NEEDED FOR PAIN Prov: RUIZ REN DO 07/31/18 Patient Instructions: Foot Fracture in Adults (ED) Additional Instructions: Take Lortab as needed for pain relief, keep her foot elevated, apply ice packs You are on unable to take NSAIDs since you are on warfarin. Follow-up with Dr. Hugo Ko or you can go to clinical applications specialist, Dr. Guzmán Problem Qualifiers Primary Impression: Closed nondisplaced fracture of fifth left metatarsal bone Encounter type: initial encounter Qualified Codes: S92.355A - Nondisplaced fracture of fifth metatarsal bone, left foot, initial encounter for closed fracture RUIZ REN DO July 31, 2018 18:01
[2018-07-31] MEDS ORDERED: LOR5/325 PO ×2 (18:07→18:36)
--- NOTE | 2018-07-31 18:44 | RADIOLOGY IMAGING REPORT ---
[place] [facility] [place]IENT NAME: Jace Farr : 1945 MR: [id number] V: [id number] EXAM DATE: ORDERING PHYSICIAN: RUIZ REN TECHNOLOGIST: [facility] Patient: Jace Farr : 1945 Visit/Account:[id number] Date of Sevice: 07/31/2018 EXAMINATION: Left foot 3 views HISTORY: Stepped on rock severe pain COMPARISON: None. FINDINGS: There is a nondisplaced fracture at the base of the left fifth metatarsal. Fracture line extends towa rds the articular surface at the TMT joint but without definite extension to the articular surface. No other acute osseous findings in the left foot. Moderate degenerative changes at the first MTP joint with joint space narrowing and osteophyte format ion. There are additional scattered degenerative changes at the midfoot and multiple IP joints of the foot. Small plantar and Achilles calcaneal spurs. Soft tissue swelling along the left foot. IMPRESSION: 1. Nondisplaced fracture at the base of the left fifth metatarsal, extending towards the articular casanova rface at the TMT joint. 2. No other acute osseous findings in the left foot. 3. Osteopenia with chronic multifocal degenerative changes. Report Dictated By: Nicola Harmon MD at 07/31/2018 6:32 PM Report E-Signed By: Nicola Harmon MD at 07/31/2018 6:40 PM WSN:[id number]
== END 2018-07-31 18:52 | disposition home or self-care (01) ==
LOC: ER 18:08
DX: S92.355A Nondisplaced fracture of fifth metatarsal bone, left foot, initial encounter for closed fracture (principal)
CPT/HCPCS: 99283

== ENCOUNTER → 2018-08-02 | Outpatient (CLI) | payer MEDICARE, MEDICAID ==
[2018-08-02 17:47] LABS: INR 1.26
== END ==
LOC: LAB 16:53
DX: Z51.81 Encounter for therapeutic drug level monitoring (principal); Z79.01 Long term (current) use of anticoagulants; I71.4 Abdominal aortic aneurysm, without rupture
CPT/HCPCS: 36415; 85610

== ENCOUNTER → 2018-08-05 | Outpatient (CLI) | payer MEDICARE, MEDICAID ==
[2018-08-05 10:21] LABS: INR 1.48
== END ==
LOC: LAB 09:43
PROVIDERS: ATTEND Surgery Vascular Surgery
DX: Z51.81 Encounter for therapeutic drug level monitoring (principal); Z79.01 Long term (current) use of anticoagulants; I71.4 Abdominal aortic aneurysm, without rupture
CPT/HCPCS: 36415; 85610

== ENCOUNTER → 2018-08-12 | Outpatient (CLI) | payer MEDICARE, MEDICAID ==
[2018-08-12 12:35] LABS: INR 2.25
== END ==
LOC: LAB 12:07
PROVIDERS: ATTEND Surgery Vascular Surgery
DX: Z51.81 Encounter for therapeutic drug level monitoring (principal); Z79.01 Long term (current) use of anticoagulants; I71.4 Abdominal aortic aneurysm, without rupture
CPT/HCPCS: 36415; 85610

== ENCOUNTER → 2018-08-19 | Outpatient (CLI) | payer MEDICARE, MEDICAID ==
[2018-08-19 09:35] LABS: INR 2.07
== END ==
LOC: LAB 09:16
PROVIDERS: ATTEND Surgery Vascular Surgery
DX: Z51.81 Encounter for therapeutic drug level monitoring (principal); Z79.01 Long term (current) use of anticoagulants; I71.4 Abdominal aortic aneurysm, without rupture
CPT/HCPCS: 36415; 85610

== ENCOUNTER → 2018-08-26 | Outpatient (CLI) | payer MEDICARE, MEDICAID ==
[2018-08-26 09:50] LABS: INR 2.21
== END ==
LOC: LAB 09:28
PROVIDERS: ATTEND Surgery Vascular Surgery
DX: Z51.81 Encounter for therapeutic drug level monitoring (principal); I71.4 Abdominal aortic aneurysm, without rupture; Z79.01 Long term (current) use of anticoagulants
CPT/HCPCS: 36415; 85610

== ENCOUNTER → 2018-09-09 | Outpatient (CLI) | payer MEDICARE, MEDICAID ==
[2018-09-09 10:41] LABS: INR 2.29
== END ==
LOC: LAB 10:05
PROVIDERS: ATTEND Surgery Vascular Surgery
DX: Z51.81 Encounter for therapeutic drug level monitoring (principal); Z79.01 Long term (current) use of anticoagulants; I71.4 Abdominal aortic aneurysm, without rupture
CPT/HCPCS: 36415; 85610

== ENCOUNTER → 2018-09-23 | Outpatient (CLI) | payer MEDICARE, MEDICAID ==
[2018-09-23 10:30] LABS: INR 1.97
== END ==
LOC: LAB 09:48
PROVIDERS: ATTEND Surgery Vascular Surgery
DX: Z51.81 Encounter for therapeutic drug level monitoring (principal); Z79.01 Long term (current) use of anticoagulants; I71.4 Abdominal aortic aneurysm, without rupture
CPT/HCPCS: 36415; 85610

== ENCOUNTER → 2018-10-07 | Outpatient (CLI) | payer MEDICARE, MEDICAID ==
[2018-10-07 11:31] LABS: INR 1.62
== END ==
LOC: LAB 11:01
PROVIDERS: ATTEND Surgery Vascular Surgery
DX: Z51.81 Encounter for therapeutic drug level monitoring (principal); I71.4 Abdominal aortic aneurysm, without rupture; Z79.01 Long term (current) use of anticoagulants
CPT/HCPCS: 36415; 85610

== ENCOUNTER → 2018-10-21 | Outpatient (CLI) | payer MEDICARE, MEDICAID ==
[2018-10-21 15:38] LABS: INR 2.2
== END ==
LOC: LAB 14:59
PROVIDERS: ATTEND Surgery Vascular Surgery
DX: Z51.81 Encounter for therapeutic drug level monitoring (principal); I71.4 Abdominal aortic aneurysm, without rupture; Z79.01 Long term (current) use of anticoagulants
CPT/HCPCS: 36415; 85610

== ENCOUNTER → 2018-10-27 | Outpatient (CLI) | payer MEDICARE, MEDICAID ==
[2018-10-27 15:37] LABS: INR 2.39
== END ==
LOC: LAB 14:41
PROVIDERS: ATTEND Surgery Vascular Surgery
DX: Z51.81 Encounter for therapeutic drug level monitoring (principal); I71.4 Abdominal aortic aneurysm, without rupture; Z79.01 Long term (current) use of anticoagulants
CPT/HCPCS: 36415; 85610

== ENCOUNTER → 2018-11-05 | Outpatient (CLI) | payer MEDICARE, MEDICAID ==
[2018-11-05 13:39] LABS: INR 2.04
== END ==
LOC: LAB 12:31
PROVIDERS: ATTEND Surgery Vascular Surgery
DX: Z51.81 Encounter for therapeutic drug level monitoring (principal); I71.4 Abdominal aortic aneurysm, without rupture; Z79.01 Long term (current) use of anticoagulants
CPT/HCPCS: 36415; 85610